=== PATIENT | female | born 1960 | race African-American/Black ===

== ENCOUNTER 2023-08-03 10:07 | Day surgery (SDC) | payer OTHER ==
[2023-07-28 15:48] VITALS: BMI 37.2
[2023-08-03] MEDS ORDERED: PROPOFOL 120 ML ONE (11:31)
[2023-08-03 12:53] VITALS: RESP 19; TEMP 98
[2023-08-03 12:57] VITALS: BP 110/70; PULSE 79
== END 2023-08-03 12:05 | disposition home or self-care (01) ==
LOC: FASU-ENDO 10:07
PROVIDERS: ATTEND Internal Medicine Gastroenterology
PROC: 0DBN8ZX Excision of Sigmoid Colon, Via Natural or Artificial Opening Endoscopic, Diagnostic (ICD-10-PCS; principal; 2023-08-03 11:24)
DX: Z12.11 Encounter for screening for malignant neoplasm of colon (principal); K63.5 Polyp of colon; Z86.010 Personal history of colon polyps; K64.1 Second degree hemorrhoids